=== PATIENT | female | born 1990 | race American Indian/Alaskan Native ===

== ENCOUNTER 2022-04-30 01:54 | Inpatient (IN) | payer MEDICAID ==
[2022-04-30] MEDS ORDERED: ACETAMINOPHEN 325 MG TAB PO PRN (05:35)
[2022-04-30] MEDS ORDERED: TERBUTALINE 1 MG/1 ML INJ SUB-Q PRN (05:35)
[2022-04-30] MEDS ORDERED: ePHEDrine SULFATE 50 MG/1 ML INJ IV PRN (05:35)
[2022-04-30] MEDS ORDERED: miSOPROStol 200 MCG TAB PR PRN (05:35)
[2022-04-30] MEDS ORDERED: LOPERAMIDE 2 MG CAP PO PRN (05:35)
[2022-04-30] MEDS ORDERED: MINERAL OIL 30 ML ORAL LIQD PO PRN (05:35)
[2022-04-30] MEDS ORDERED: CARBOPROST TROMETHAMINE 250 MCG/1 ML INJ IM PRN (05:35)
[2022-04-30] MEDS ORDERED: OXYTOCIN 10 UNIT/1 ML INJ IM PRN (05:35)
[2022-04-30] MEDS ORDERED: BUTORPHANOL 2 MG/1 ML INJ IV PRN ×2 (05:35→07:30)
[2022-04-30] MEDS ORDERED: METHYLERGONOVINE MALEATE 0.2 MG/ML VIAL IM PRN (05:35)
--- NOTE | 2022-04-30 05:57 | Ultrasound Report ---
US OB follow up INDICATION / CLINICAL INFORMATION: Labor COMPARISON: None available. TECHNIQUE: Using a transcutaneous probe, multiple grayscale, color Doppler, and spectral Doppler imag es of the uterus and fetus were captured and stored. FINDINGS: Single cephalic fetus heart rate 139 bpm. Amniotic fluid index is decreased, measuring 5.0 cm. Biparietal Diameter = 9.1 cm = 37, 0 weeks, days Head Circumference = 32.6 cm = 37, 0 weeks, days Abdominal Circumference = 30.8 cm = 34, 5 weeks, days Femur Length = 7.6 cm = 38, 5 weeks, days Average Ultrasound Age (AUA) = 36, 6 weeks, days. EDC 05/22/2022. Clinical estimate gestational age based on LMP of 07/25/2021 is 39 weeks 6 days. Estimated weight = 2898 g. IMPRESSION: 1. Single living fetus as detailed. Signer Name: Ramiro Velazquez II, MD Signed: 04/30/2022 5:52 AM Workstation Name: [id number]
[2022-04-30 06:16] LABS: Hematocrit 37.5 % (30.3-42.9); Mean Corpuscular HGB Conc 32 % (30-34); Mean Corpuscular Volume 73 fl (79-97); Platelet Count 254 K/mm3 (140-440); Red Blood Count 5.13 M/mm3 (3.65-5.03); Red Cell Distribution Width 14.5 % (13.2-15.2)
--- NOTE | 2022-04-30 07:25 | History and Physical Report ---
History of Present Illness Date of examination: 04/30/22 Date of admission: 04/30/22 05:35 Chief complaint: Contractions Past History Past Medical History: no pertinent history Past Surgical History: no surgical history [employer]ODUCTION FOREMAN History: abnormal PAP smear Family/Genetic History: none Social history: no significant social history - Obstetrical History Expected Date of Delivery: 05/01/22 Actual Gestation: 39 Week(s) 6 Day(s) : 1 Para: 0 Medications and Allergies Allergies Allergy/AdvReac Type Severity Reaction Status Date / Time No Known Allergies Allergy Unverified 04/30/22 02:37 Active Meds: Active Medications Acetaminophen (Acetaminophen 325 Mg Tab) 650 mg PO Q4H PRN PRN Reason: Pain, Mild (1-3) Butorphanol Tartrate (Butorphanol 2 Mg/1 Ml Inj) 2 mg IV Q2H PRN PRN Reason: Pain, Moderate(4-6) LABOR PAIN Carboprost Tromethamine (Carboprost Tromethamine 250 Mcg/1 Ml Inj) 250 mcg IM ONCE PRN PRN Reason: Uterine Bleeding Ephedrine Sulfate (Ephedrine Sulfate 50 Mg/1 Ml Inj) 10 mg IV Q2M PRN PRN Reason: Hypotension Lactated Ringer's (Lactated Ringers) 1,000 mls @ 125 mls/hr IV DIRECT GAYATHRI Methylergonovine Maleate (Methylergonovine Maleate 0.2 Mg/Ml Vial) 0.2 mg IM ONCE PRN PRN Reason: Uterine Bleeding Misoprostol (Misoprostol 25 Mcg Tab) 25 mcg PO Q4H GAYATHRI Stop: 04/30/22 18:01 Terbutaline Sulfate (Terbutaline 1 Mg/1 Ml Inj) 0.25 mg SUB-Q ONCE PRN PRN Reason: Hyperstimulation/Hypertonicity Review of Systems All systems: negative - Vital Signs Vital signs: Vital Signs Pulse BP 62 108/59 04/30/22 02:25 04/30/22 02:25 Temp Pulse Resp BP Pulse Ox 97.8 F 62 108/59 04/30/22 02:26 04/30/22 02:25 04/30/22 02:25 - Physical Exam Breasts: Positive: normal Cardiovascular: Regular rate Lungs: Positive: Normal air movement Abdomen: Positive: normal appearance Genitourinary (Female): Positive: normal external genitalia, normal perenium Vulva: both: normal Vagina: Positive: normal moisture Uterus: Positive: enlarged Adnexa: both: normal Anus/Rectum: Positive: normal perianal skin Extremities: Positive: normal Deep Tendon Reflex Grade: Normal +2 - Obstetrical FHR: category 1 Uterine Contraction Monitor Mode: Palpation Cervical Dilatation: 1.5 Cervical Effacement Percentage: 50 station: -3 Uterine Contraction Pattern: Irregular Results Result Diagrams: 04/30/22 05:55 Abnormal lab results 04/30/22 Range/Units 05:55 WBC 14.1 H (4.5-11.0) K/mm3 RBC 5.13 H (3.65-5.03) M/mm3 MCV 73 L (79-97) fl MCH 23 L (28-32) pg All other labs normal. Ultrasound: report reviewed (OB Ultrasound Limited= SLIUP. Vertex. EFW= 2898 g (7th %-ile). KATE= 5.0 cm.), image reviewed Assessment and Plan - Patient Problems (1) 39 weeks gestation of Current Visit: Yes Status: Acute Plan to address problem: care is up-to-date at [facility]. She is GBS (-). AM shift to obtain records from the office. (2) Small for gestational age fetus Current Visit: Yes Status: Acute Plan to address problem: EFW is in the 7th %-ile. Etiology is unknown. However, the most likely cause is constitutional. Nevertheless, IOL at this gestational age is medically indicated to mitigate the risk of stillbirth. As such, admit to L&D for IOL. (3) Oligohydramnios, third trimester, fetus 1 Current Visit: Yes Status: Acute Plan to address problem: KATE is 5 cm. ROM plus is ordered. Etiology is unknown. Nevertheless, IOL at this gestational age is medically indicated to mitigate the risk of stillbirth. As such, admit to L&D for IOL. (4) Encounter for induction of labor Current Visit: Yes Status: Acute Plan to address problem: IOL with PO Cytotec.
[2022-04-30] MEDS ORDERED: SODIUM CHLORIDE 0.9% 1000 ML 1,000 ML ONE (19:23)
[2022-04-30] MEDS ORDERED: miSOPROStol 25 MCG TAB PO SCH (21:00)
[2022-05-01] MEDS: miSOPROStol 25 MCG TAB PO SCH ×2 (01:17→05:14)
[2022-05-01] MEDS ORDERED: SODIUM CHLORIDE 0.9% 1000 ML 1,000 ML ONE (04:47)
[2022-05-01] MEDS ORDERED: SODIUM CHLORIDE 0.9% 1000 ML 1,000 ML IV SCH (06:30)
[2022-05-01] MEDS ORDERED: NALOXONE 0.4 MG/1 ML INJ IV PRN ×2 (06:31→17:25)
[2022-05-01] MEDS ORDERED: ePHEDrine SULFATE 50 MG/1 ML INJ IV PRN (06:31)
--- NOTE | 2022-05-01 06:32 | Anesthesia Consultation ---
Anesthesia Consult and Med Hx Date of service: 05/01/22 - Airway Anesthetic Teeth Evaluation: Poor ROM Head & Neck: Adequate Mental/Hyoid Distance: Adequate Mallampati Class: Class II Intubation Access Assessment: Probably Good - Pulmonary Exam CTA: Yes - Cardiac Exam Cardiac Exam: RRR - Pre-Operative Health Status ASA Pre-Surgery Classification: ASA3 Proposed Anesthetic Plan: Epidural - Pulmonary Hx Smoking: No Hx Asthma: No - Cardiovascular System Hx Hypertension: No - Central Nervous System Hx Seizures: No Hx Psychiatric Problems: No - Endocrine Hx Renal Disease: No Hx Non-Insulin Dependent Diabetes: Yes (GDM) Hx Hypothyroidism: No Hx Hyperthyroidism: No - Hematic Hx Anemia: No Hx Sickle Cell Disease: No - Other Systems Hx Alcohol Use: No Hx Substance Use: No Hx Obesity: Yes
--- NOTE | 2022-05-01 06:34 | Progress Note ---
Labor Epidural - Labor Epidural Start Time: 06:12 Stop Time: 06:15 Performed by:: DEANDRE MIX Procedure: Patient is requesting epidural for labor pain. H&P and labs reviewed. Procedure explained, questions answered, consent obtained. Patient placed in sitting position with monitors applied. Timeout performed immediately before start of procedure. Prep/drape in usual sterile fashion. Skin localized 3 mL 1% lidocaine at L[3]-L[4] interspace. 17-gauge Touhy epidural needle advanced to NATE with saline at [8] cm. No blood/CSF noted via epidural needle. Epidural catheter advanced to [12] cm. Negative aspiration for blood and CSF via catheter, negative response to test dose 3 ml 1.5% lidocaine w/ Epi. Sterile dressing applied followed by tape reinforcement. Patient tolerated procedure well. No immediate complications noted.
[2022-05-01] MEDS ORDERED: OXYTOCIN DRIP 30 UNITS/500 ML BAG IV SCH ×2 (07:00→14:00)
[2022-05-01] MEDS ORDERED: fentaNYL-BUPIV 2 MCG/ML-0.125% 200 MCG/100 ML BAG EPIDURAL SCH (07:00)
[2022-05-01] MEDS: LACTATED RINGERS 1,000 ML IV SCH ×3 (08:50→22:47)
[2022-05-01] MEDS ORDERED: SODIUM CHLORIDE 0.9% 1000 ML 1,000 ML VG SCH (09:30)
--- NOTE | 2022-05-01 09:32 | Event Note ---
Date: 05/01/22 pt with severe deep variables not with contractions, FSE/IUPC both placed. U/S to bedside with O-P presentation. Amnioinfusion ordered. Discussed with pt plan for vaginal delivery, however if pt with category III FHR then, we will have to proceed with alternate route of delivery. Pt currently with IV fluid bolus, right lateral tilt (baby did not like left lateral) and oxygen therapy. Hopeful for vag delivery. Pelvic 5/80/-2 vtx, scant fluid on bed. Will measure adequacy at a later time. All questions encouraged and answered.
[2022-05-01] MEDS ORDERED: METOCLOPRAMIDE 10 MG/2 ML INJ IV ONE (13:47)
[2022-05-01] MEDS ORDERED: FAMOTIDINE 20 MG/2 ML INJ IV ONE (13:47)
[2022-05-01] MEDS ORDERED: BICITRA ORAL LIQD 30ML PO ONE (13:47)
--- NOTE | 2022-05-01 13:52 | Anesthesia Day of Surgery ---
Anesthesia Day of Surgery - Day of Surgery Patient Examined: Yes Patient H&P Reviewed: Yes Patient is NPO: Yes
[2022-05-01] MEDS ORDERED: LACTATED RINGERS 1,000 ML IV SCH (14:00)
[2022-05-01] MEDS ORDERED: LIDOCAINE 2%/EPINEPHRINE 1:200,000 VIAL (20 ML) INFILTRATI ONE (14:06)
[2022-05-01] MEDS ORDERED: ceFAZolin/Water 2 GM/20 ML 2 GM/20 ML SYRINGE IV ONE (14:07)
--- NOTE | 2022-05-01 14:36 | Event Note ---
Date: 05/01/22 pt evaluated and pitocin started by nurse after pt has been receiving amnioinfusion and mdv at 165. Fetus now with recurrent late decel
[2022-05-01] MEDS ORDERED: ONDANSETRON 4 MG/2 ML INJ ONE (15:11)
[2022-05-01] MEDS ORDERED: AZITHROMYCIN/NS 500 MG/250 ML 500 MG/250 ML BAG IV SCH (16:00)
[2022-05-01] MEDS ORDERED: dexAMETHasone 20 MG/5 ML VIAL ONE (16:04)
[2022-05-01] MEDS ORDERED: BUPIVACAINE/PF (0.25%) 2.5 MG/ML 30 ML VIAL INFILTRATI ONE ×2 (16:04)
[2022-05-01] MEDS ORDERED: miSOPROStol 200 MCG TAB ONE (16:05)
[2022-05-01] MEDS ORDERED: SODIUM CHLORIDE 0.9% 500 ML 500 ML ONE ×2 (16:15→17:03)
[2022-05-01] MEDS ORDERED: MEPERIDINE 25 MG/1 ML INJ ONE (16:17)
[2022-05-01] MEDS ORDERED: LACTATED RINGERS 1,000 ML ONE (16:43)
--- NOTE | 2022-05-01 16:55 | Procedure Note ---
OB Delivery Note - Delivery Date of Delivery: 05/01/22 Surgeon: LAURYN KIM Estimated blood loss: other (1400+ by QBL) - Section Preop diagnosis: arrest of dilation (and intolerance of labor when pitocin given) Postop diagnosis: same (and PPH and uterine fibroids) section procedure: primary low transverse Disposition: floor Complications: intra-op hemorrhage Narrative: Date: 05/01/22 Surgeon: Lauryn Kim MD Preop Dx: IUP at 39.0wks, gest DM, arrest of dilatation, intolerance of labor with pitocin Postop Dx: same and uterine fibroids and hemorrhage Procedure : Primary Low transverse section Anesthesia: Epidural Intake: 2500cc crystalloids Output: 200cc EBL: 1427cc by QBL After the risks, benefits and alternatives of procedure discussed, patient signed consents and was taken to the operating room. Pt was given Epidural anesthesia. After same was adequate, patient was prepped and draped in the usual sterile fashion. Elizondo catheter in place and draining pink urine. Pt was given prophylactic antibiotic per protocol and time out was done Pfannenstiel skin incision was made and taken sharply to the fascia and the incision extended using electrocautery. Superior edge of the fascia was grasped with rhonda clamps and the rectus muscle using blunt dissection and also using electrocautery. Lower portion of the fascia also sharply. Rectus muscle in the midline and Peritoneal cavity entered bluntly and extended with good visualization of the bladder. The bladder flap was created sharply using metzenbaum scissors. Lower uterine segment then entered transversely and amniotic sac entered using allys clamps. Uterine incision extended using bandage scissors. Infant occiput-posterior presentation, delivered, and thick meconium noted; bulb suctioned, cord clamped and baby handed to waiting pediatricians. Placenta then delivered completely and uterine cavity cleared of all clots and debri. The uterus was not exteriorized and closed in 2 layers using 0-vicryl suture in a running locked fashion and then an additional layer of imbrication suture. Pt noted to have multiple 2-3cm fibroids x3; Excellent hemostasis noted. Surgicel powder placed along the incision line The gutters were cleared of clots and debri and anterior peritoneum closed using 3-0 vicryl suture in continuous fashion and rectus muscle reapproximated using 0-vicryl suture in a continuous fashion. Rectus fascia closed with 0-vicryl suture in a continuous fashion and subcutaneous tissue copiously irrigated with normal saline and re-approximated using 3-0 vicryl suture in a continuous fashion. Excellent hemostasis remains. The skin was closed with 4-0 monocryl] suture and steristrips placed with pressure dressing. Sponge, lap, instrument and needle counts x2 were normal. Patient tolerated the procedure well and was taken to recovery room stable. CBC ordered and plan for pt to get 1unit PRBC in the recovery room with symptomatic anemia and maternal tacchycardia per anesthesia. Findings: Viable female , APGARS 8/9 and weight []g. Normal uterus, tubes and ovaries.
[2022-05-01] MEDS ORDERED: SODIUM CHLORIDE 0.9% 500 ML 500 ML IV SCH (17:18)
[2022-05-01] MEDS ORDERED: ONDANSETRON 4 MG/2 ML INJ IV PRN (17:25)
[2022-05-01] MEDS ORDERED: diphenhydrAMINE 50 MG/ML VIAL IV PRN (17:25)
[2022-05-01] MEDS ORDERED: PROMETHAZINE 25 MG RECT SUPP PR PRN (17:25)
[2022-05-01 17:34] LABS: Hematocrit 36.6 % (30.3-42.9); Hemoglobin 10.5 gm/dl (10.1-14.3); Mean Corpuscular Volume 81 fl (79-97); Red Blood Count 4.49 M/mm3 (3.65-5.03)
[2022-05-01 17:36] LABS: Mean Corpuscular HGB Conc 29 % (30-34); Platelet Count 321 K/mm3 (140-440); Red Cell Distribution Width 24.6 % (13.2-15.2)
[2022-05-01] MEDS: HYDROmorphone 1 MG/1 ML INJ IV PRN ×4 (17:44→18:11)
[2022-05-01 17:47] LABS: INR 1.09 (0.87-1.13); Partial Thromboplastin Time 24.2 Sec. (24.2-36.6)
[2022-05-01 18:25] LABS: Anisocytosis 2+; Basophils % (Manual) 0 % (0.0-1.8); Eosinophils % (Manual) 0 % (0.0-4.3); Hypochromasia 2+; Total Cells Counted 100
[2022-05-01 18:26] LABS: Burr Cells 2+; Large Platelets Few; Platelet Estimate Consistent w Auto; Target Cells Few; Tear Drop Cells Few
[2022-05-01 18:27] LABS: Blood Urea Nitrogen TNR mg/dL (7-17)
[2022-05-01 18:28] LABS: Alanine Aminotransferase TNR units/L (7-56); Albumin TNR g/dL (3.9-5); BUN/Creatinine Ratio TNR; Calcium TNR mg/dL (8.4-10.2); Hemolysis Index TNR
[2022-05-01] MEDS ORDERED: GENTAMICIN 370 MG in SODIUM CHLORIDE 0.9% 100 ML IV SCH (18:30)
[2022-05-01] MEDS ORDERED: miSOPROStol 200 MCG TAB PR ONE (18:36)
--- NOTE | 2022-05-01 19:13 | Progress Note ---
Regional Anesthesia Block - Regional Anesthesia Block Start Time: 18:50 Stop Time: 18:57 Performed By:: DEANDRE MIX Procedure: Patient consented for TAP block for post surgical pain management. Patient identified, monitors placed, and time out performed. TAP identified bilaterally via ultrasound. Skin prepped bilaterally with [chlorhexidine] and [22g stimuplex] needle advanced to the TAP. [Marcaine 0.25% 30ml] injected under ultrasound guidance on the [left] side. [Marcaine 0.25% 30ml] injected under ultrasound guidance on the [right] side. Negative aspiration every 5mL, No change in heart rate or rhythm. Patient tolerated the procedure well. No apparent complications seen.
--- NOTE | 2022-05-01 19:13 | Post Anesthesia Evaluation ---
- Post Anesthesia Evaluation Patient Participated: Yes Airway Patent: Yes Stable Respiratory Function: Yes Nausea/Vomiting: No Temp > 96.8F: Yes Pain Manageable: Yes Adequeate Hydration: Yes Anesthesia Complications: No Block Receding Appropriately: Yes Patient on Ventilator: No
[2022-05-01] MEDS: AMPICILLIN/NS 2 GM/100 ML 2 GM/100 ML BAG IV SCH (22:46)
[2022-05-02] MEDS: GENTAMICIN/NS 120MG/100ML 120 MG/100 ML BAG IV SCH ×4 (01:02→23:33)
[2022-05-02] MEDS: AMPICILLIN/NS 2 GM/100 ML 2 GM/100 ML BAG IV SCH ×4 (07:16→17:57)
--- NOTE | 2022-05-02 08:48 | Progress Note ---
Subjective Date of service: 05/02/22 Principal diagnosis: POD#1 C/S with fibroids, PPH Objective - Constitutional Vitals: Vital Signs - 12hr 05/01/22 05/02/22 05/02/22 21:22 00:15 05:01 Temperature 100 F H 98.0 F 97.5 F L Pulse Rate 106 H 78 61 Respiratory 18 20 20 Rate Blood Pressure 107/72 109/68 Blood Pressure 87/52 [Right] O2 Sat by Pulse 96 95 Oximetry O2 Sat by Pulse 90 Oximetry [ Posterior Bilateral Throughout] 05/02/22 05/02/22 07:40 08:37 Temperature 97.8 F Pulse Rate 92 H Respiratory 16 Rate Blood Pressure Blood Pressure 99/68 [Right] O2 Sat by Pulse 98 Oximetry O2 Sat by Pulse 90 Oximetry [ Posterior Bilateral Throughout] - Labs CBC & Chem 7: 05/01/22 16:40 05/01/22 16:40 Labs: Abnormal lab results 04/30/22 05/01/22 05/01/22 Range/Units 05:55 12:14 16:40 WBC (4.5-11.0) K/mm3 MCH (28-32) pg MCHC (30-34) % RDW (13.2-15.2) % Seg Neuts % (Manual) (40.0-70.0) % Lymphocytes % (Manual) (13.4-35.0) % Lymphocytes # (Manual) (1.2-5.4) K/mm3 PT 15.4 H (12.2-14.9) Sec. Fibrinogen 540 H (211-480) mg/dl POC Glucose 123 H (70-105) mg/dL Crossmatch See Detail 05/01/22 Range/Units 16:40 WBC 3.5 L (4.5-11.0) K/mm3 MCH 23 L (28-32) pg MCHC 29 L (30-34) % RDW 24.6 H (13.2-15.2) % Seg Neuts % (Manual) 82.0 H (40.0-70.0) % Lymphocytes % (Manual) 13.0 L (13.4-35.0) % Lymphocytes # (Manual) 0.5 L (1.2-5.4) K/mm3 PT (12.2-14.9) Sec. Fibrinogen (211-480) mg/dl POC Glucose (70-105) mg/dL Crossmatch Medications & Allergies - Medications Allergies/Adverse Reactions: Allergies No Known Allergies Allergy (Unverified 04/30/22 02:37) Home Medications: Home Medications Medication Instructions Recorded Confirmed Last Taken Type Ibuprofen [Motrin] 800 mg PO Q8HR PRN 21 Days #40 05/01/22 Unknown Rx tablet oxyCODONE /ACETAMINOPHEN [Percocet 2 tab PO Q4HR PRN #21 tab 05/01/22 Unknown Rx 5/325] Active Medications: Generic Name Dose Route Start Last Admin Trade Name Freq PRN Reason Stop Dose Admin Acetaminophen 650 mg 04/30/22 05:35 05/01/22 22:27 Acetaminophen 325 Mg Tab PO 650 mg Q4H PRN Administration Pain, Mild (1-3) Carboprost Tromethamine 250 mcg 04/30/22 05:35 Carboprost Tromethamine 250 Mcg/1 Ml Inj IM ONCE PRN Uterine Bleeding Diphenhydramine HCl 12.5 mg 05/01/22 17:25 Diphenhydramine 50 Mg/Ml Vial IV Q2H PRN Itching Hydromorphone HCl 0.5 mg 05/01/22 17:25 Hydromorphone 1 Mg/1 Ml Inj IV Q4H PRN breakthrough pain > 7/10 Lactated Ringer's 1,000 mls @ 125 mls/hr 04/30/22 05:45 05/01/22 22:47 Lactated Ringers IV 125 mls/hr DIRECT GAYATHRI Administration Oxytocin/Sodium Chloride 30 units in 500 mls @ 1 mls/hr 05/01/22 07:00 05/01/22 13:49 Pitocin/Ns 30 Unit/500ml IV 0 mls/hr TITR GAYATHRI Titration Protocol Oxytocin/Sodium Chloride 30 units in 500 mls @ 0 mls/hr 05/01/22 14:00 Pitocin/Ns 30 Unit/500ml IV TITR GAYATHRI Protocol As Directed Ampicillin Sodium 2 gm in 100 mls @ 100 mls/hr 05/01/22 20:00 05/02/22 07:16 Ampicillin/Ns 2 Gm/100 Ml IV 05/03/22 14:59 100 mls/hr Q6H GAYATHRI Administration Protocol Clindamycin HCl 900 mg in 50 mls @ 100 mls/hr 05/01/22 18:00 05/02/22 02:44 Cleocin 900 Mg/50 Ml IV 05/02/22 18:29 100 mls/hr Q8H GAYATHRI Administration Protocol Sodium Chloride 500 mls @ 0 mls/hr 05/01/22 17:18 Nacl 0.9% 500 Ml IV ONCE GAYATHRI As Directed Gentamicin Sulfate/Sodium Chloride 120 mg in 100 mls @ 200 mls/hr 05/01/22 23 :00 05/02/22 08:26 Gentamicin/Ns 120mg/100ml IV 05/03/22 00:59 200 mls/hr Q8H GAYATHRI Administration Methylergonovine Maleate 0.2 mg 04/30/22 05:35 Methylergonovine Maleate 0.2 Mg/Ml Vial IM ONCE PRN Uterine Bleeding Naloxone HCl 0.2 mg 05/01/22 17:25 Naloxone 0.4 Mg/1 Ml Inj IV Q2MIN PRN Res Rate </= 8 or 02 SAT < 92% Ondansetron HCl 4 mg 05/01/22 17:25 Ondansetron 4 Mg/2 Ml Inj IV Q8H PRN Nausea And Vomiting Promethazine HCl 25 mg 05/01/22 17:25 Promethazine 25 Mg Rect Supp MD Q6H PRN Nausea And Vomiting
[2022-05-02] MEDS: SIMETHICONE 80 MG CHEW TAB PO SCH ×3 (10:00→21:45)
[2022-05-02] MEDS: HYDROmorphone 1 MG/1 ML INJ IV PRN ×2 (10:07→18:48)
--- NOTE | 2022-05-02 11:15 | Electrocardiograph Report ---
[facility] Test Date: 2022-05-01 Test Time: 17:33:35 Pat Name: DYLAN IBRAHIM Department: Room: [facility] 1 Gender: F [employer]: CHANDAN : 1990 Requested By: TC KIM Order Number: [id number] Reading MD: Luis Felipe Montana Measurements Intervals [place] Rate: 135 P: 55 NJ: 125 QRS: 96 QRSD: 74 T: 25 QT: 306 QTc: 459 Interpretive Statements Sinus tachycardia No previous ECG available for comparison Electronically Signed On 05-02-2022 11:15:02 EDT by Luis Felipe Montana
[2022-05-02] MEDS: LACTATED RINGERS 1,000 ML IV SCH (13:14)
[2022-05-02] MEDS ORDERED: miSOPROStol 200 MCG TAB PR ONE (18:01)
[2022-05-02 21:27] LABS: Hematocrit 34.2 % (30.3-42.9); Hemoglobin 10.9 gm/dl (10.1-14.3); Mean Corpuscular HGB Conc 32 % (30-34); Mean Corpuscular Volume 75 fl (79-97); Platelet Count 217 K/mm3 (140-440); Red Blood Count 4.56 M/mm3 (3.65-5.03); Red Cell Distribution Width 15.6 % (13.2-15.2)
[2022-05-02] MEDS: METOCLOPRAMIDE 10 MG/2 ML INJ IV SCH (21:45)
[2022-05-03] MEDS: AMPICILLIN/NS 2 GM/100 ML 2 GM/100 ML BAG IV SCH (00:06)
[2022-05-03] MEDS ORDERED: WITCH HAZEL/ GLYCERIN PAD TP PRN (00:11)
[2022-05-03] MEDS ORDERED: MORPHINE 4 MG/1 ML INJ IV PRN (00:11)
[2022-05-03] MEDS ORDERED: IBUPROFEN 800 MG TAB PO PRN (00:11)
[2022-05-03] MEDS ORDERED: IBUPROFEN 600 MG TAB PO PRN (00:11)
[2022-05-03] MEDS ORDERED: LANOLIN/ZINC/DIMETHICONE (LANSINOH) 7 GM TP PRN (00:11)
[2022-05-03] MEDS ORDERED: NALOXONE 0.4 MG/1 ML INJ IV PRN (00:11)
[2022-05-03] MEDS ORDERED: ACETAMINOPHEN 325 MG TAB PO PRN (00:11)
[2022-05-03] MEDS: oxyCODONE /ACETAMINOPHEN 5-325MG TAB PO PRN (00:45)
[2022-05-03 00:46] LABS: Anisocytosis 1+; Basophils % (Manual) 0 % (0.0-1.8); Eosinophils % (Manual) 0 % (0.0-4.3); Hypochromasia 1+; Platelet Estimate Consistent w Auto; Total Cells Counted 200
[2022-05-03] MEDS: VANCOMYCIN/NS 1 GM/250 ML 1 GM/250 ML BAG IV SCH ×2 (02:10→14:18)
[2022-05-03] MEDS: SIMETHICONE 80 MG CHEW TAB PO SCH ×3 (03:48→15:57)
[2022-05-03] MEDS: METOCLOPRAMIDE 10 MG/2 ML INJ IV SCH ×2 (03:48→09:00)
--- NOTE | 2022-05-03 06:37 | Progress Note ---
Assessment and Plan POD#2 C/Section doing fair, still without flatus and having leucocytosis on broad spectrum abx, TMax on 05/01 was 101.6 and pt has remained afebrile since that time 1. Will continue broad spectrum antibiotics for today and repeat CBC tomorrow 2. Will give dulcolax suppos today 3. Encourage ambulation 4. Routine post op care and dressing removed Shared decision making for plan of care. Subjective Date of service: 05/03/22 Principal diagnosis: POD#2 C/S with fibroids, PPH Interval history: pt has no passed gas but sometimes feels it moving inside. pt has tolerated her clears diet. Pt ambulates and voids in bathroom well. Denies fever or chills and desires to breast feed, currently doing bottle feed. Objective - Constitutional Vitals: Vital Signs - 12hr 05/02/22 05/03/22 05/03/22 20:00 00:38 00:45 Temperature 97.5 F L Pulse Rate 58 L Respiratory 18 20 Rate Blood Pressure 93/53 O2 Sat by Pulse 98 Oximetry O2 Sat by Pulse 98 Oximetry [ Posterior Bilateral Throughout] General appearance: Present: no acute distress - Neck Neck: supple - Respiratory Respiratory effort: normal - Breasts Breasts: deferred - Cardiovascular Rhythm: regular Extremities: No edema - Gastrointestinal General gastrointestinal: Present: soft (mild distension), normal bowel sounds - Genitourinary Female genitourinary: other (Incision C/D/I with steristrips) - Integumentary Integumentary: warm, dry - Neurologic Neurologic: moves all extremities - Psychiatric Psychiatric: cooperative - Labs CBC & Chem 7: 05/02/22 20:46 05/01/22 16:40 Labs: Abnormal lab results 05/02/22 Range/Units 20:46 WBC 21.0 H (4.5-11.0) K/mm3 MCV 75 L (79-97) fl MCH 24 L (28-32) pg RDW 15.6 H (13.2-15.2) % Seg Neuts % (Manual) 84.0 H (40.0-70.0) % Lymphocytes % (Manual) 13.0 L (13.4-35.0) % Seg Neutrophils # Man 17.6 H (1.8-7.7) K/mm3 Medications & Allergies - Medications Allergies/Adverse Reactions: Allergies No Known Allergies Allergy (Unverified 04/30/22 02:37) Home Medications: Home Medications Medication Instructions Recorded Confirmed Last Taken Type Ibuprofen [Motrin] 800 mg PO Q8HR PRN 21 Days #40 05/01/22 Unknown Rx tablet oxyCODONE /ACETAMINOPHEN [Percocet 2 tab PO Q4HR PRN #21 tab 05/01/22 Unknown R x 5/325] Active Medications: Generic Name Dose Route Start Last Admin Trade Name Franky PRN Reason Stop Dose Admin Acetaminophen 650 mg 05/03/22 00:11 Acetaminophen 325 Mg Tab PO Q4H PRN Fever >100.5/SARMIENTO Diphenhydramine HCl 12.5 mg 05/01/22 17:25 Diphenhydramine 50 Mg/Ml Vial IV Q2H PRN Itching Lactated Ringer's 1,000 mls @ 125 mls/hr 04/30/22 05:45 05/02/22 13:14 Lactated Ringers IV 125 mls/hr DIRECT GAYATHRI Administration Oxytocin/Sodium Chloride 30 units in 500 mls @ 1 mls/hr 05/01/22 07:00 05/01/22 13:49 Pitocin/Ns 30 Unit/500ml IV 0 mls/hr TITR GAYATHRI Titration Protocol Oxytocin/Sodium Chloride 30 units in 500 mls @ 0 mls/hr 05/01/22 14:00 Pitocin/Ns 30 Unit/500ml IV TITR GAYATHRI Protocol As Directed Sodium Chloride 500 mls @ 0 mls/hr 05/01/22 17:18 Nacl 0.9% 500 Ml IV ONCE GAYATHRI As Directed Gentamicin Sulfate/Sodium Chloride 120 mg in 100 mls @ 200 mls/hr 05/01/22 23:00 05/02/22 23:33 Gentamicin/Ns 120mg/100ml IV 05/03/22 15:29 200 mls/hr Q8H GAAYTHRI Administration Vancomycin HCl 1 gm in 250 mls @ 166.667 mls/hr 05/03/22 01:00 05/03/22 02:10 Vancomycin/Ns 1 Gm/250 Ml IV 05/04/22 14:29 166.667 mls/hr Q12H GAYATHRI Administration Protocol Clindamycin HCl 900 mg in 50 mls @ 100 mls/hr 05/03/22 01:00 05/03/22 01:36 Cleocin 900 Mg/50 Ml IV 05/04/22 01:29 100 mls/hr Q8H GAYATHRI Administration Protocol Ibuprofen 600 mg 05/03/22 00:11 Ibuprofen 600 Mg Tab PO Q6H PRN Pain, Mild (1-3) Ibuprofen 800 mg 05/03/22 00:11 Ibuprofen 800 Mg Tab PO Q6H PRN Pain, Moderate (4-6) Metoclopramide HCl 10 mg 05/02/22 19:00 05/03/22 03:48 Metoclopramide 10 Mg/2 Ml Inj IV 05/03/22 07:01 10 mg Q6H GAYATHRI Administration Morphine Sulfate 4 mg 05/03/22 00:11 Morphine 4 Mg/1 Ml Inj IV Q4H PRN Pain , Severe (7-10) Multi-Ingredient Ointment 1 applic 05/03/22 00:11 Lanolin/Zinc/Dimethicone (Lansinoh) 7 Gm TP PRN PRN dryness/cracking Multivitamins/Iron/Calcium 1 each 05/03/22 10:00 [id number] Fumarate-Folic Acid Vit Tab PO QDAY [facility] Naloxone HCl 0.1 mg 05/03/22 00:11 Naloxone 0.4 Mg/1 Ml Inj IV Q2MIN PRN Res Rate </= 8 or 02 SAT < 92% Ondansetron HCl 4 mg 05/01/22 17:25 Ondansetron 4 Mg/2 Ml Inj IV Q8H PRN Nausea And Vomiting Oxycodone/Acetaminophen 2 tab 05/03/22 00:11 05/03/22 00:45 Oxycodone /Acetaminophen 5-325mg Tab PO 2 tab Q4H PRN Administration Pain, Moderate (4-6) Promethazine HCl 25 mg 05/01/22 17:25 Promethazine 25 Mg Rect Supp [place] Q6H PRN Nausea And Vomiting Simethicone 80 mg 05/02/22 10:00 05/03/22 03:48 Simethicone 80 Mg Chew Tab PO 80 mg Q6H GAYATHRI Administration Sodium Chloride 10 ml 05/03/22 01:00 Sodium Chloride 0.9% 10 Ml Flush Syringe IV PRN PRN LINE FLUSH Witch Sigrid/Glycerin 1 each 05/03/22 00:11 Witch Sigrid/ Glycerin Pad TP PRN PRN Hemorrhoids/cleansing/soothing
[2022-05-03] MEDS: GENTAMICIN/NS 120MG/100ML 120 MG/100 ML BAG IV SCH ×2 (08:54→15:57)
[2022-05-03] MEDS: PRENATAL VIT27-FE FUMARATE-FOLIC ACID VIT TAB PO SCH (09:00)
[2022-05-03] MEDS: LACTATED RINGERS 1,000 ML IV SCH (13:54)
[2022-05-03] MEDS ORDERED: MAGNESIUM HYDROXIDE (MOM) ORAL LIQD UDC PO PRN (15:08)
[2022-05-03 22:07] LABS: Basophils % (Auto) 0.1 % (0.0-1.8); Eosinophils % (Auto) 0.3 % (0.0-4.3); Hematocrit 34.8 % (30.3-42.9); Lymphocytes # (Auto) 1.5 K/mm3 (1.2-5.4); Lymphocytes % (Auto) 10.8 % (13.4-35.0); Mean Corpuscular HGB Conc 32 % (30-34); Mean Corpuscular Volume 74 fl (79-97); Monocytes # (Auto) 0.9 K/mm3 (0.0-0.8); Monocytes % (Auto) 6.5 % (0.0-7.3); Platelet Count 258 K/mm3 (140-440); Red Blood Count 4.68 M/mm3 (3.65-5.03); Red Cell Distribution Width 15.5 % (13.2-15.2)
[2022-05-03] MEDS ORDERED: TETANUS,DIPH,PERTUSS(ACELL) VACCINE 0.5 ML SYRINGE IM ONE (22:38)
[2022-05-04] MEDS: VANCOMYCIN/NS 1 GM/250 ML 1 GM/250 ML BAG IV SCH (01:22)
[2022-05-04] MEDS: SIMETHICONE 80 MG CHEW TAB PO SCH ×2 (02:09→06:39)
--- NOTE | 2022-05-04 10:57 | Progress Note ---
Assessment and Plan A: POD #3 GDM A1 P: Follow Routine PostOP Orders Continue GDM Diet at home D/C Home today RTO in One Week Subjective - Subjective Date of service: 05/04/22 Principal diagnosis: POD#2 C/S with fibroids, PPH Patient reports: appetite normal, voiding normally, pain well controlled, flatus, bowel movement, ambulating normally : doing well, bottle feeding Objective - Vital Signs Latest vital signs: Vital Signs Temp Pulse Resp BP Pulse Ox Pulse Ox 05/04/22 09:02 97.9 F 57 L 18 93/52 98 05/04/22 05:35 98 05/04/22 03:20 98 05/04/22 01:20 98 05/04/22 00:12 97.4 F L 59 L 20 99/67 95 05/03/22 23:38 98 05/03/22 22:25 98 05/03/22 19:45 98 05/03/22 15:25 97.8 F 79 20 103/74 95 05/03/22 14:52 98 05/03/22 12:05 18 99 Intake and Output 05/03/22 05/04/22 05/04/22 22:59 06:59 14:59 Intake Total 540 Balance 540 Intake: IV 300 CLEOCIN 900 MG/50 mL 900 50 mg In 50 ml @ 100 mls/hr IV Q8H GAYATHRI Rx#:[id number] VANCOMYCIN/NS 1 GM/250 ML 250 1 gm In 250 ml @ 166.667 mls/hr IV Q12H GAYAHTRI Rx#: [id number] Intake, Free Water 240 Other: Voiding Method Toilet # Voids Void 1 Estimated Blood Loss 1,427 - Exam Breasts: Present: normal Cardiovascular: Present: Regular rate Lungs: Present: Clear to auscultation, Normal air movement Abdomen: Present: normal appearance, soft, normal bowel sounds Uterus: Present: normal, firm, fundal height below umbilicus Extremities: Present: normal Incision: Present: normal, dry, intact - Labs Labs: Abnormal lab results 04/30/22 05/03/22 Range/Units 05:55 21:10 WBC 14.0 H (4.5-11.0) K/mm3 MCV 74 L (79-97) fl MCH 24 L (28-32) pg RDW 15.5 H (13.2-15.2) % Lymph % (Auto) 10.8 L (13.4-35.0) % Gove # (Auto) 0.9 H (0.0-0.8) K/mm3 Seg Neutrophils % 82.3 H (40.0-70.0) % Seg Neutrophils # 11.6 H (1.8-7.7) K/mm3 Crossmatch See Detail
--- NOTE | 2022-05-04 10:59 | Discharge Summary ---
Providers - Providers Date of Admission: 04/30/22 05:35 Date of discharge: 05/04/22 Attending physician: TC KIM Primary care physician: MILTON COLUNGA MD Hospitalization Reason for admission: induction of labor Delivery: Procedure: primary low transverse Episiotomy: none Laceration: none Incision: normal, dry, intact Other procedures: none complications: none Discharge diagnosis: IUP at term delivered [place] baby: female Condition at discharge: Good Disposition: 01 HOME / SELF CARE / HOMELESS Plan - Discharge Medications Prescriptions: Ibuprofen [Motrin] 800 mg PO Q8HR PRN 21 Days #40 tablet PRN Reason: Pain, Moderate (4-6) oxyCODONE /ACETAMINOPHEN [Percocet 5/325] 2 tab PO Q4HR PRN #21 tab PRN Reason: Pain , Severe (7-10) - Provider Discharge Summary Activity: routine, no sex for 6 weeks, no heavy lifting 4 weeks, no strenuous exercise Diet: routine Instructions: routine Additional instructions: [] Smoking cessation referral if applicable(refer to patient education folder for contact #) [] Refer to [facility] Booklet Call your doctor immediately for: * Fever > 100.5 * Heavy vaginal bleeding ( >1 pad per hour) * Severe persistent headache * Shortness of breath * Reddened, hot, painful area to leg or breast * Drainage or odor from incision. * Keep incision clean and dry at all times and follow doctor's instructions regarding bathing/showering - Follow up plan Follow up: MILTON COLUNGA MD [Primary Care Provider] - 7 Days
[2022-05-04] MEDS: PRENATAL VIT27-FE FUMARATE-FOLIC ACID VIT TAB PO SCH (13:04)
[2022-05-04] MEDS: oxyCODONE /ACETAMINOPHEN 5-325MG TAB PO PRN (13:44)
[2022-05-04 14:16] VITALS: BP 103/66
== END 2022-05-04 14:45 | disposition home or self-care (01) | DRG 765 ==
LOC: TRG 01:54 → APU 01:56 → OBSVTOIN 05:35 → APU 05:35 → TRG 06:36 → LD 18:29 → APU 05-01 15:29 → OB 05-01 20:06
PROVIDERS: ADMIT Obstetrics & Gynecology Gynecology; ATTEND Obstetrics & Gynecology
PROC: 10D00Z1 Extraction of Products of Conception, Low, Open Approach (ICD-10-PCS; principal; 2022-05-01)
PROC: 10H07YZ Insertion of Other Device into Products of Conception, Via Natural or Artificial Opening (ICD-10-PCS; 2022-05-01)
PROC: 3E0T3BZ Introduction of Anesthetic Agent into Peripheral Nerves and Plexi, Percutaneous Approach (ICD-10-PCS; 2022-05-01)
PROC: 3E0234Z Introduction of Serum, Toxoid and Vaccine into Muscle, Percutaneous Approach (ICD-10-PCS; 2022-05-03)
DX: O41.03X0 Oligohydramnios, third trimester, not applicable or unspecified (principal); O72.1 Other immediate postpartum hemorrhage; O36.5930 Maternal care for other known or suspected poor fetal growth, third trimester, not applicable or unspecified; Z3A.39 39 weeks gestation of pregnancy; Z20.822 Contact with and (suspected) exposure to COVID-19; Z23 Encounter for immunization; Z37.0 Single live birth; O34.13 Maternal care for benign tumor of corpus uteri, third trimester; D25.9 Leiomyoma of uterus, unspecified; O62.1 Secondary uterine inertia
CPT/HCPCS: 36415; 36430; 76816; 80053; 82962; 84112; 85007; 85025; 85027; 85384; 85610; 85730; 86850; 86900; 86901; 86920; 88307; 90471; 90715; 93005; G0378; J3490; J7502; J0290; J0595; J1100; J1170; J1580; J2175; J2405; J2590; J2765; J3105; J3370; J7030; J7040; J7120; P9016; U0003

== ENCOUNTER 2022-05-29 15:23 | Emergency (ER) | payer MEDICAID ==
[2022-05-29 16:52] VITALS: BP 111/67
--- NOTE | 2022-05-29 17:03 | Event Note ---
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 In the setting of a significantly high volume and record number of patients presenting to the emergency department and the fact that we have a limited space to see patients we have implemented the provider in triage protocol this allows an expedited initial exam of patients that might otherwise have left without being seen or who would wait longer than usual to be seen by provider. I interviewed the patient and performed a limited physical exam. This patient is a pulled from the waiting room to triage room for an initial assessment of adrenal studies and then returned to the waiting room pending results of the studies. The ultimate final evaluation and disposition may be performed by another provider depending on room and provider availability.:
[2022-05-29 17:55] LABS: Hematocrit 37.4 % (30.3-42.9); Hemoglobin 11.9 gm/dl (10.1-14.3); Mean Corpuscular HGB Conc 32 % (30-34); Mean Corpuscular Volume 74 fl (79-97); Platelet Count 382 K/mm3 (140-440); Red Blood Count 5.03 M/mm3 (3.65-5.03); Red Cell Distribution Width 15.2 % (13.2-15.2)
[2022-05-29 18:31] LABS: Alanine Aminotransferase 10 units/L (7-56); Albumin 3.9 g/dL (3.9-5); BUN/Creatinine Ratio 14; Blood Urea Nitrogen 11 mg/dL (7-17); Calcium 9.7 mg/dL (8.4-10.2); Hemolysis Index 11
== END 2022-05-30 08:39 | disposition left against medical advice (07) ==
LOC: ED 15:23
DX: Z00.00 Encounter for general adult medical examination without abnormal findings (principal); Z53.21 Procedure and treatment not carried out due to patient leaving prior to being seen by health care provider
CPT/HCPCS: 36415; 80053; 82140; 85027